=== PATIENT | female | born 2000 | race Caucasian/White ===

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

== ENCOUNTER 2022-02-17 20:16 | Emergency (ER) | payer MEDICAID ==
[2022-02-17] MEDS ORDERED: Sodium Chloride 0.9% 10 ML Syringe FLUSH PRN (21:00)
[2022-02-17] MEDS ORDERED: Ondansetron 4 MG/2 ML SDV IVPUSH ONE (21:01)
[2022-02-17] MEDS ORDERED: Lactated Ringers 1,000 ML IV ONE ×2 (21:01→21:54)
[2022-02-17 21:32] LABS: PTT,PARTIAL THROMBOPLSTIN TIME 29.1 SEC (20.5-30.9)
[2022-02-17 21:40] LABS: CHLORIDE,CL 104 mmol/L (98-107); SODIUM,NA 138 mmol/L (136-145)
[2022-02-17 21:42] LABS: ANION GAP 15.8 mmol/L (5-15); ESTIMATED GFR 109 mL/min (>=60)
[2022-02-17 21:44] VITALS: BP 121/57; PULSE 70
[2022-02-17] MEDS ORDERED: Morphine 4 MG/ML Syringe IVPUSH ONE (21:54)
[2022-02-17] MEDS ORDERED: Metoclopramide 10 MG/2 ML SDV IVPUSH ONE (21:55)
[2022-02-17 22:04] LABS: BARBITURATE SCREEN,URINE NEGATIVE (NEGATIVE); BENZODIAZEPINES SCREEN,URINE NEGATIVE (NEGATIVE); METHAMPHETAMINE SCREEN, URINE NEGATIVE (NEGATIVE); THC SCREEN,URINE 50 NG/ML POSITIVE (NEGATIVE)
[2022-02-17] MEDS ORDERED: Iopamidol 612 MG/ML 100 ML Bottle IVPUSH ONE (22:04)
[2022-02-17 22:05] LABS: BUPRENORPHINE SCREEN,URINE NEGATIVE (NEGATIVE)
[2022-02-17] MEDS ORDERED: Take Home: Ondansetron 4 MG Tab.DIS, 5 Tab Pack PO ONE (23:19)
== END 2022-02-17 23:35 | disposition home or self-care (01) ==
LOC: VM.ED 20:16
DX: K52.9 Noninfective gastroenteritis and colitis, unspecified (principal); F41.9 Anxiety disorder, unspecified; F32.A Depression, unspecified; Z79.899 Other long term (current) drug therapy
CPT/HCPCS: 36415; 74177; 80053; 80305; 80307; 81003; 81025; 82150; 83690; 83735; 85025; 85610; 85730; 86140; 96361; 96374; 96375; 99284; J2270; J2405; J2765; J7120; Q0162; Q9967

== ENCOUNTER 2022-08-17 19:24 | Emergency (ER) | payer MEDICAID ==
[2022-08-17 19:41] VITALS: BP 118/77; PULSE 84
[2022-08-17] MEDS ORDERED: Ibuprofen 200 MG Tab PO ONE (19:43)
[2022-08-17 20:05] LABS: CHLORIDE,CL 102 mmol/L (98-107); SODIUM,NA 139 mmol/L (136-145)
[2022-08-17 20:07] LABS: ESTIMATED GFR 109 mL/min (>=60)
[2022-08-17 20:09] LABS: PTT,PARTIAL THROMBOPLSTIN TIME 26.6 SEC (20.5-30.9)
[2022-08-17 20:34] LABS: CORONAVIRUS COVID-19 NAA NEGATIVE (NEGATIVE)
[2022-08-17 20:35] LABS: RESPIRATORY SYNCYTIAL VIR NAA NEGATIVE (NEGATIVE)
[2022-08-17] MEDS ORDERED: Sodium Chloride 0.9% 10 ML Syringe FLUSH PRN (20:38)
[2022-08-17] MEDS ORDERED: Lactated Ringers 1,000 ML IV ONE (20:41)
[2022-08-17] MEDS ORDERED: Iopamidol 612 MG/ML 100 ML Bottle IVPUSH ONE (20:53)
[2022-08-17] MEDS ORDERED: Take Home: Ondansetron 4 MG Tab.DIS, 5 Tab Pack PO ONE (21:57)
== END 2022-08-17 22:10 | disposition home or self-care (01) ==
LOC: VM.ED 19:24
DX: K52.9 Noninfective gastroenteritis and colitis, unspecified (principal); Z20.822 Contact with and (suspected) exposure to COVID-19
CPT/HCPCS: 0241U; 36415; 80053; 81001; 81025; 82150; 83690; 83735; 84100; 85025; 85610; 85730; 86140; 96360; 99284; A9270; J3490; J7120; Q0162; Q9967; 74177

== ENCOUNTER 2022-09-23 11:48 | Emergency (ER) | payer MEDICAID ==
[2022-09-23] MEDS: Ketorolac 30 MG/ML SDV IM ONE (12:31)
[2022-09-23] MEDS: Ondansetron 4 MG Tab.DIS PO ONE (12:32)
== END 2022-09-23 13:03 | disposition home or self-care (01) ==
LOC: VM.ED 11:48
DX: N94.6 Dysmenorrhea, unspecified (principal)
CPT/HCPCS: 96372; 99283; 99284; A9270-GY; J1885